=== PATIENT | male | born 1950 | race Caucasian/White ===

== ENCOUNTER 2019-03-25 20:21 | Inpatient (IN) | payer OTHER ==
[~2019-03-25] VITALS: Ht 172.7 cm; Wt 93.0 kg
[2019-03-25 20:25] VITALS: BP_SYST 165
--- NOTE | 2019-03-25 20:25 | NUR ---
Placed in room 1. Placed on clinical research monitor, blood pressure machine and pulse oximeter. To gown for exam. Side rails up.
--- NOTE | 2019-03-25 20:35 | NUR ---
Patient AOx4, ambulatory, presents to ED with complaint of heart burn and CP after having dinner tonight. Patient reports he was at [employer] earlier today and ate a hotdog. Later, patient states that while having dinner (pork chop, potatoes, and couliflower) he had an increase in heart burn. Patient states that he recently was told to stop taking his omeprazole and believes that has contributed to her symptoms. No other symptoms or complaints.
--- NOTE | 2019-03-25 20:50 | NUR ---
ED MD Guevara at bedside for medical evaluation.
[2019-03-25] MEDS ORDERED: ASPIRIN 81 MG TAB.CHEW PO ONE ×2 (21:00→21:15)
[2019-03-25] MEDS ORDERED: ONDANSETRON HCL 4 MG/2 ML VIAL IVP ONE (21:15)
[2019-03-25] MEDS ORDERED: FAMOTIDINE PF 20 MG/2 ML VIAL IVP ONE (21:15)
--- NOTE | 2019-03-25 21:15 | NUR ---
# 18 gauge angiocath placed to LAC. Use of asceptic technique. Opsite placed over site. Blood return noted. Blood for lab drawn from site. Flushed with 10 cc of normal saline. No evidence of infiltration noted. Patient tolerated well.
[2019-03-25 21:28] LABS: BASOPHILS % (AUTO) 0.2 % (0.0-2.0); EOSINOPHILS # (AUTO) 0.2 K/uL (0.0-0.4); EOSINOPHILS % (AUTO) 2.4 % (0.0-4.0); HEMATOCRIT 40.4 % (36-54); HEMOGLOBIN 13.3 g/dL (14.0-18.0); LYMPHOCYTES # (AUTO) 1.3 K/uL (1.0-5.5); LYMPHOCYTES % (AUTO) 16.2 % (20.5-51.5); MEAN CORPUSCULAR HEMOGLOBIN 28 pg (27-31); MEAN CORPUSCULAR HGB CONC 33 % (32-36); MEAN CORPUSCULAR VOLUME 86 fL (79.0-98.0); MONOCYTES # (AUTO) 0.5 K/uL (0.0-1.0); MONOCYTES % (AUTO) 6.2 % (1.7-9.3); NEUTROPHILS # (AUTO) 5.9 K/uL (1.8-7.7); PLATELET COUNT (AUTO) 181 K/uL (130-430); RED BLOOD CELL COUNT(AUTO) 4.71 MIL/uL (4.2-6.2); RED CELL DISTRIBUTION WIDTH 15.6 % (9.0-15.0); WHITE BLOOD COUNT (AUTO) 7.9 K/uL (4.8-10.8)
[2019-03-25 21:45] LABS: CREATININE 1.15 mg/dL (0.55-1.30); POTASSIUM 3.4 mmol/L (3.5-5.1)
[2019-03-25 21:48] LABS: PROTHROMBIN TIME 9.9 SECS (9.5-12.5)
[2019-03-25 21:50] LABS: ALBUMIN 4.1 g/dL (3.4-4.8); TOTAL BILIRUBIN 0.7 mg/dL (0.0-1.0)
--- NOTE | 2019-03-25 22:27 | NUR ---
ED MD Guevara at bedside to update patient on hospital admission.
[2019-03-25] MEDS ORDERED: LIDOCAINE VISCOUS 2%, 15 ML UDC MM ONE (22:30)
[2019-03-25] MEDS ORDERED: DICYCLOMINE HCL 20 MG/2 ML AMP IM ONE (22:30)
[2019-03-25] MEDS ORDERED: MAG-AL HYDROX/SIMETH 30 ML UDC PO ONE (22:30)
[2019-03-25] MEDS ORDERED: DICYCLOMINE HCL 10 MG/5 ML SOLUTION PO ONE (22:45)
--- NOTE | 2019-03-25 23:53 | NUR ---
APatient will be admitted to care of Dr. Beckman per Dr. Sorensen. Admitted to Telemetry unit. Awaiting bed placement in unit. Belongings list. Complete and up to date summary report printed. SBAR report to be given at bedside with opportunity for questions.
--- NOTE | 2019-03-26 01:05 | NUR ---
Pt had one episode of ~ 10 mL of non-bloody emesis. Denies nausea, states "It's just my acid reflux. It's phlegm. I just can't catch it sometimes." Gown changed. Emesis bag provided. Pt denies pain at this time.
--- NOTE | 2019-03-26 01:35 | NUR ---
Per ciro Terry for patient to self administer Omeprazole 40mg from home meds.
--- NOTE | 2019-03-26 03:27 | NUR ---
MD Sorensen at bedside.
[2019-03-26] MEDS ORDERED: MORPHINE 2 MG/ML INJ. SYRINGE IVP PRN (03:30)
[2019-03-26] MEDS ORDERED: MORPHINE 4 MG/ML INJ. SYRINGE IVP PRN (03:30)
[2019-03-26] MEDS ORDERED: ALBUTEROL SULFATE 0.083% 2.5 MG/3 ML VIAL.NEB INH PRN (03:30)
[2019-03-26] MEDS ORDERED: ONDANSETRON HCL 4 MG/2 ML VIAL IVP PRN (03:30)
[2019-03-26] MEDS ORDERED: PANTOPRAZOLE SODIUM 40 MG/VIAL (PROTONIX) IVP SCH (03:45)
[2019-03-26 04:07] VITALS: BP_SYST 165
[2019-03-26] MEDS: NACL 0.9% 1,000 ML IV SCH ×2 (04:07→16:50)
--- NOTE | 2019-03-26 05:00 | NUR ---
Patient resting comfortably. No acute distress noted at this time.
[2019-03-26] MEDS ORDERED: ACETAMINOPHEN 500 MG TABLET PO ONE (06:45)
--- NOTE | 2019-03-26 06:55 | NUR ---
Blood glucose level 99 at this time.
--- NOTE | 2019-03-26 07:11 | NUR ---
Report given to BERNARDO Garcia. All care endorsed.
--- NOTE | 2019-03-26 07:55 | NUR ---
Patient is resting comfortably in bed, respirations even and unlabored, speaking in full sentences. VSS, pain level 0/10. Still on Tele hold at this time.
[2019-03-26 09:15] LABS: TRIGLYCERIDES 65 mg/dL (30-150)
--- NOTE | 2019-03-26 09:15 | NUR ---
ADMISSION: The patient, KAILEE ANDERS, 68 y/o, M admitted by VALARIE GERMAIN MD, with the diagnosis of chest pain to room 118 B ,was given written information regarding hospital policies, unit procedures and contact persons.
[2019-03-26 09:16] LABS: CHOLESTEROL 139 mg/dL (<200); HDL CHOLESTEROL 47 mg/dL (>45); LDL CHOLESTEROL 73 mg/dL (<100)
--- NOTE | 2019-03-26 09:29 | NUR ---
Patient will be admitted to care of Dr. Espino. Admitted to Tele unit. Will go to room 118B. Belongings list completed. Complete and up to date summary report printed. SBAR report given to BERNARDO Morales at bedside with opportunity for questions.
[2019-03-26 09:34] VITALS: BP_SYST 150
--- NOTE | 2019-03-26 09:48 | NUR ---
CONSULT GI SEVER GERD DR LICEA [phone] DR GUERRA ROUSTABOUT SUPERVISOR S/W [facility]
--- NOTE | 2019-03-26 09:51 | NUR ---
CONSULT CARDIOLOGY CHEST PAIN DR EVANS [phone] MCKINLEY GARVEY
--- NOTE | 2019-03-26 10:00 | NUR ---
Note Received report from Carmen RN - admit RN at 0945am. Pt's admission assessment being done at this time. Pt resting in bed with tele unit attached (applied on admission to floor) and IV in left AC patent and intact infusing IVF's well. Pt was oriented to nursing routines and procedures. Questions/concerns were answered at this time. Call light within reach.
[2019-03-26] MEDS: PANTOPRAZOLE SODIUM 40 MG/VIAL (PROTONIX) IVP SCH ×2 (10:19→17:15)
--- NOTE | 2019-03-26 11:20 | NUR ---
Note Dr Beckman on the floor to do assessment on pt at bedside.
[2019-03-26 12:00] VITALS: BP_SYST 150
--- NOTE | 2019-03-26 12:15 | NUR ---
Note Dr Lopez at bedside doing assessment and naswering pt's concerns/questions. Pt denies any needs at this time. Pt denies any SOB/resp distress or severe abdominal pain/discomfort at this time. Call light within reach.
--- NOTE | 2019-03-26 14:10 | NUR ---
Note Pt refused his breakfast and lunch tray, states he does not want to try any foods while he is experiencing heart burn. Pt was given Protonix IVP at 10am. Pt ambulated himself to restroom to void with IV pole. No needs noted. Pt resting in bed at this time. Call light within reach.
[2019-03-26 16:00] VITALS: BP_SYST 142; BP_SYST 144
--- NOTE | 2019-03-26 16:20 | NUR ---
Note Pt resting in bed. Denies any needs or severe abdominal pain/discomfort at this time. Call light within reach.
--- NOTE | 2019-03-26 17:30 | NUR ---
NOTE Pt was given discharge instructions and questions/concerns were answered at this time. Tele unit was dc'd and returned to quality assurance monitor chassis. IV in left AC was dc'd and site benign. No Swelling noted at this time. Pt dressed in street clothes and packed all belongings. Pt checked side table and drawers for belongings. Pt denies any severe abdominal heartburn pain/discomfort at this time. No SOB/resp distress noted. Pt stable. Pt was checked on q1' and PRN all shift for needs and care.
--- NOTE | 2019-03-26 17:45 | NUR ---
Note Pt off the floor with all belongings and discharge instructions to private car. Pt stable.
--- NOTE | 2019-03-29 13:36 | NUR ---
Discharge Follow Up Phone Call Phoned patient, , and spoke with patient's , Shweta. She stated patient was doing well. His follow up appointments have been made and they have no questions or concerns.
== END 2019-03-26 17:45 | disposition home or self-care (01) | DRG 392 ==
LOC: SED 20:21 → STU 23:51
PROVIDERS: ADMIT Internal Medicine Hospice and Palliative Medicine; ATTEND Internal Medicine Hospice and Palliative Medicine
DX: K21.9 Gastro-esophageal reflux disease without esophagitis (principal); E78.5 Hyperlipidemia, unspecified; I10 Essential (primary) hypertension; F32.9 Major depressive disorder, single episode, unspecified; K44.9 Diaphragmatic hernia without obstruction or gangrene; Z87.891 Personal history of nicotine dependence; Z79.899 Other long term (current) drug therapy
CPT/HCPCS: 36415; 71045; 80053; 80061; 82550-TC; 82962; 83880; 84484; 85025; 85379; 85610-TC; 85730-TC; 93005; 93306; 96374; 96375; 99285; C9113; G0378; J2001; J2405; J3490